=== PATIENT | female | born 1985 | race Caucasian/White ===

== ENCOUNTER 2017-07-26 23:58 | Emergency (ER) | payer SELFPAY ==
[2017-07-27] MEDS ORDERED: LIDOCAINE 1% W/EPI 1:100,000 MDV 50 ML VIAL ONE (01:12)
[2017-07-27] MEDS ORDERED: LIDOCAINE 1% 20 ML MDV ONE (01:12)
[2017-07-27] MEDS ORDERED: TETANUS & DIPHTHERIA TOX,ADULT 0.5 ML VIAL ONE (01:13)
--- NOTE | 2017-07-27 01:46 | EDPHYS ---
Physician Documentation [facility] Name: Alexandra Serrato Age: 31 yrs Sex: Female : 1985 Arrival Date: 07/27/2017 Time: 00:01 Bed 5 Private MD: ED Physician Philip Rojas HPI: 07/27 00:58 This 31 yrs old Female presents to ER via Ambulatory with complaints of snw Laceration To Lip. 00:58 The patient has a laceration related to: playing, hook from purse, occurred at home, snw and there are no complicating factors. The laceration(s) is(are) located on the upper marixa border. Onset: The symptoms/episode began/occurred suddenly, and became persistent. Associated signs and symptoms: The patient has no apparent associated signs or symptoms. The patient has not experienced similar symptoms in the past. The patient has not recently seen a physician. 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 - Social history:: Smoking status: Patient/guardian denies using tobacco. ROS: 00:58 Constitutional: Negative for fever, chills, and weight loss, Eyes: Negative for injury, snw pain, redness, and discharge, Neck: Negative for injury, pain, and swelling, Cardiovascular: Negative for chest pain, palpitations, and edema, Respiratory: Negative for shortness of breath, cough, wheezing, and pleuritic chest pain, Abdomen/GI: Negative for abdominal pain, nausea, vomiting, diarrhea, and constipation, Back: Negative for injury and pain, : Negative for injury, bleeding, discharge, and swelling, MS/Extremity: Negative for injury and deformity, Skin: Negative for injury, rash, and discoloration, Neuro: Negative for headache, weakness, numbness, tingling, and seizure. 00:58 ENT: Positive for injury or acute deformity, laceration, of the upper lip. Exam: 00:56 Constitutional: This is a well developed, well nourished patient who is awake, alert, snw and in no acute distress. Eyes: Pupils equal round and reactive to light, extra-ocular motions intact. Lids and lashes normal. Conjunctiva and sclera are non-icteric and not injected. Cornea within normal limits. Periorbital areas with no swelling, redness, or edema. ENT: Nares patent. No nasal discharge, no septal abnormalities noted. Tympanic membranes are normal and external auditory canals are clear. Oropharynx with no redness, swelling, or masses, exudates, or evidence of obstruction, uvula midline. Mucous membranes moist. Neck: Trachea midline, no thyromegaly or masses palpated, and no cervical lymphadenopathy. Supple, full range of motion without nuchal rigidity, or vertebral point tenderness. No Meningismus. Chest/axilla: Normal chest wall appearance and motion. Nontender with no deformity. No lesions are appreciated. Cardiovascular: Regular rate and rhythm with a normal S1 and S2. No gallops, murmurs, or rubs. Normal PMI, no JVD. No pulse deficits. Respiratory: Lungs have equal breath sounds bilaterally, clear to auscultation and percussion. No rales, rhonchi or wheezes noted. No increased work of breathing, no retractions or nasal flaring. Abdomen/GI: Soft, non-tender, with normal bowel sounds. No distension or tympany. No guarding or rebound. No evidence of tenderness throughout. Back: No spinal tenderness. No costovertebral tenderness. Full range of motion. Skin: Warm, dry with normal turgor. Normal color with no rashes, no lesions, and no evidence of cellulitis. MS/ Extremity: Pulses equal, no cyanosis. Neurovascular intact. Full, normal range of motion. Neuro: Awake and alert, GCS 15, oriented to person, place, time, and situation. Cranial nerves II-XII grossly intact. Motor strength 5/5 in all extremities. Sensory grossly intact. Cerebellar exam normal. Normal gait. Psych: Awake, alert, with orientation to person, place and time. Behavior, mood, and affect are within normal limits. 00:56 Head/face: Noted is a laceration(s), that is deep, 1.5 cm(s), of the upper lip, swelling, that is moderate. Vital Signs: 00:11 BP 121 / 81; Pulse 105; Resp 18; Temp 98; Pulse Ox 95% on R/A; Weight 113.4 kg; Height bp 5 ft. 6 in. (167.64 cm); 01:15 BP 135 / 58; Pulse 94; Resp 16; Pulse Ox 98% ; bp 00:11 Body Mass Index 40.35 (113.40 kg, 167.64 cm) bp Laceration: 01:48 Wound Repair of 1.2cm ( 0.5in ) subcutaneous laceration to upper lip. Irregularly snw shaped.. Hemostasis noted.. Distal neuro/vascular/tendon intact. Anesthesia: Local anesthetic administered with 5 mls of 1% lidocaine. Wound prep: Moderate cleansing with hibiclenz. Skin closed with 5 6-0 Prolene using simple sutures and sterile technique. Skin closed with 1 6-0 chromic using simple sutures and sterile technique. Dressed with none. Patient tolerated well. MDM: 00:30 Patient medically screened. bernadette 01:47 Data reviewed: vital signs, nurses notes. Data interpreted: Pulse oximetry: on room air snw is 98 %. Interpretation: normal. Counseling: I had a detailed discussion with the patient and/or guardian regarding: the historical points, exam findings, and any diagnostic results supporting the discharge/admit diagnosis, the presence of at least one elevated blood pressure reading (>120/80) during this emergency department visit, the need for outpatient follow up, to return to the emergency department if symptoms worsen or persist or if there are any questions or concerns that arise at home. Special discussion: I have referred the patient to see his PCP for further evaluation of high blood pressure. I discussed in detail with the patient the higher chance of wound infection based on his presenting history. Based on the history and exam findings, there is no indication for further emergent testing or inpatient evaluation. I discussed with the patient/guardian the need to see the primary care provider for further evaluation of the symptoms. 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 Exp: bp 11/02/2019. Lot #: [id number]. } Route: IM; Site: right deltoid; 01:18 Follow up: Response: No adverse reaction bp 02:05 Drug: Lidocaine (1 %) 1 vials {Note: GIVEN BY PROVIDER.} Volume: 20 ml; Route: bp Infiltration; 02:10 Drug: KeFLEX 500 mg Route: PO; bp 02:12 Follow up: Response: Medication administered at discharge. bp Disposition: 14:30 Co-signature as Attending Physician, Philip Rojas MD I agree with the assessment and [facility] plan of care. Disposition: 07/27/17 01:46 Discharged to Home. Impression: Laceration without foreign body of lip. - Condition is Stable. - Discharge Instructions: Laceration Care, Adult, Facial Laceration, Suture Removal, Care After, Sutured Wound Care, VIS, Tetanus, Diphtheria (Td) - CDC. - Prescriptions for Keflex 500 mg Oral Capsule - take 1 capsule by ORAL route every 8 hours for 10 days; 30 capsule. Diclofenac Sodium 75 mg Oral Tablet Sustained Release - take 1 tablet by ORAL route 2 times per day; 30 tablet. - School release form, Medication Reconciliation Form, Thank You Letter, Antibiotic Education, Prescription Opioid Use form. - Follow up: Private Physician; When: 5 - 6 days; Reason: Recheck today's complaints, Continuance of care, Re-evaluation by your physician. Follow up: Emergency Department; When: 5 - 6 days; Reason: Staple/Suture removal. Signatures: Philip Rojas MD MD cha Therrien, Shelly, METROLOGY ENGINEER-C METROLOGY ENGINEER-Yonatanw Mendoza Olivas, RN RN
--- NOTE | 2017-07-27 01:46 | ER ---
Nurse's Notes [facility] Name: Alexandra Serrato Age: 31 yrs Sex: Female : 1985 Arrival Date: 07/27/2017 Time: 00:01 Bed 5 Private MD: Diagnosis: Laceration without foreign body of lip Presentation: 07/27 00:09 Presenting complaint: Patient states: I WAS WRESTLING WITH MY AND FELL INTO A bp METAL THINK. Transition of care: patient was not received from another setting of care. Complicating Factors: There are no complicating factors for this patient. Onset of symptoms was July 26, 2017 at 23:00. Initial Sepsis Screen: Does the patient meet any 2 criteria? No. Patient's initial sepsis screen is negative. Does the patient have a suspected source of infection? No. Patient's initial sepsis screen is negative. Care prior to arrival: None. 00:09 Method Of Arrival: Ambulatory bp 00:09 Acuity: ANGELA 3 bp Triage Assessment: 00:11 General: Appears distressed, comfortable, obese, Behavior is cooperative, appropriate bp for age, anxious. Pain: Complains of pain in mouth. EENT: No deficits noted. Neuro: Level of Consciousness is awake, alert, obeys commands, Oriented to person, place, time, situation, Appropriate for age. Cardiovascular: No deficits noted. Respiratory: Airway is patent Respiratory effort is even, unlabored, Respiratory pattern is regular, symmetrical. GI: No signs and/or symptoms were reported involving the gastrointestinal system. : No signs and/or symptoms were reported regarding the genitourinary system. Derm: No deficits noted. Musculoskeletal: Circulation, motion, and sensation intact. Range of motion: intact in all extremities. Injury Description: Laceration sustained to upper marixa border is 0.5 to 2.5 cm long, not bleeding, was sustained 30-60 minutes ago. is bleeding no active bleeding noted. 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 - Social history:: Smoking status: Patient/guardian denies using tobacco. Screenin:15 Abuse screen: Denies threats or abuse. Denies injuries from another. Nutritional bp screening: No deficits noted. Tuberculosis screening: No symptoms or risk factors identified. 02:00 Fall Risk None identified. bp Assessment: 00:15 Reassessment: SEE TRIAGE. 31YO WF P/W R SUPERIOR LIP LAC CROSSING THE MARIXA BORDER bp WITH COMMUNICATION TO THE ORAL CAVITY. NO ACTIVE BLEEDING AT THIS TIME. 00:15 Injury Description: Laceration sustained to upper marixa border is 0.5 to 2.5 cm bp long, was sustained 30-60 minutes ago. is bleeding no active bleeding noted. 01:20 Reassessment: PROVIDER AT B/S FOR LAC REPAIR. bp 02:12 Reassessment: PT D/C HOME AMBULATORY, DX WITH LACERATION WITHOUT FOREIGN BODY OF LIP. bp Vital Signs: 00:11 BP 121 / 81; Pulse 105; Resp 18; Temp 98; Pulse Ox 95% on R/A; Weight 113.4 kg; Height bp 5 ft. 6 in. (167.64 cm); 01:15 BP 135 / 58; Pulse 94; Resp 16; Pulse Ox 98% ; bp 00:11 Body Mass Index 40.35 (113.40 kg, 167.64 cm) bp ED Course: 00:01 Patient arrived in ED. do 00:02 Mendoza Olivas, RN is Primary Nurse. bp 00:10 Triage completed. bp 00:11 Arm band placed on left wrist. bp 00:15 Patient has correct armband on for positive identification. Bed in low position. Call bp light in reach. Side rails up X2. 00:27 Gin[facility] Pearl [facility]C [facility] snw 00:27 Philip Rojas MD is Attending Physician. snw 02:13 Assist provider with laceration repair on mouth that was using sutures. Set up tray. bp Performed by Ginette CEDEÑO Dressed with Neosporin, Patient tolerated well. Patient did not have IV access during this emergency room visit. 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 Exp: bp 11/02/2019. Lot #: [id number]. } Route: IM; Site: right deltoid; 01:18 Follow up: Response: No adverse reaction bp 02:05 Drug: Lidocaine (1 %) 1 vials {Note: GIVEN BY PROVIDER.} Volume: 20 ml; Route: bp Infiltration; 02:10 Drug: KeFLEX 500 mg Route: PO; bp 02:12 Follow up: Response: Medication administered at discharge. bp Outcome: 01:46 Discharge ordered by . snw 02:15 Discharged to home ambulatory. bp 02:15 Condition: stable 02:15 Discharge instructions given to patient, Instructed on discharge instructions, follow up and referral plans. medication usage, Demonstrated understanding of instructions, follow-up care, medications, wound care, Prescriptions given X 2. 02:17 Patient left the ED. bp Signatures: Ginette Pearl, WELL LOGGING OPERATOR MUD ANALYSIS-C WELL LOGGING OPERATOR MUD ANALYSIS-Csnw Carrie Tang Brian, RN RN bp
[2017-07-27] MEDS ORDERED: CEPHALEXIN 250 MG CAP ONE (02:07)
== END 2017-07-27 02:17 | disposition home or self-care (01) ==
LOC: ER 23:58
PROC: 0CQ0XZZ Repair Upper Lip, External Approach (ICD-10-PCS; principal; 2017-07-27)
DX: S01.511A Laceration without foreign body of lip, initial encounter (principal); W26.8XXA Contact with other sharp object(s), not elsewhere classified, initial encounter; Y93.9 Activity, unspecified; Y92.9 Unspecified place or not applicable; Z88.8 Allergy status to other drugs, medicaments and biological substances
CPT/HCPCS: 90714; 99283

== ENCOUNTER 2018-06-27 17:25 | Emergency (ER) | payer SELFPAY ==
[2018-06-27] MEDS ORDERED: KETOROLAC 30 MG/ML INJ ONE (18:29)
--- NOTE | 2018-06-27 19:15 | ER ---
Nurse's Notes [facility] [place] Name: Alexandra Serrato Age: 32 yrs Sex: Female : 1985 Arrival Date: 06/27/2018 Time: 17:27 Bed 26 Private MD: Diagnosis: Low back pain Presentation: 06/27 17:46 Presenting complaint: Low back pain 6/10 after lifting wooden bed 1 week ago. hb Transition of care: patient was not received from another setting of care. Onset of symptoms was June 20, 2018. Risk Assessment: Do you want to hurt yourself or someone else? Patient reports no desire to harm self or others. Care prior to arrival: None. 17:46 Method Of Arrival: Ambulatory hb 17:46 Acuity: ANEGLA 4 hb 18:10 Initial Sepsis Screen: Does the patient meet any 2 criteria? No. Patient's initial rv sepsis screen is negative. Does the patient have a suspected source of infection? No. Patient's initial sepsis screen is negative. 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 - Social history:: Smoking status: Patient/guardian denies using tobacco. - Ebola Screening: : No symptoms or risks identified at this time. Screenin:10 Abuse screen: Denies threats or abuse. Denies injuries from another. Nutritional rv screening: No deficits noted. Tuberculosis screening: No symptoms or risk factors identified. Fall Risk None identified. Assessment: 18:09 General: Appears in no apparent distress. uncomfortable, Behavior is calm, cooperative. rv Pain: Complains of pain in back. Neuro: Level of Consciousness is awake, alert, obeys commands, Oriented to person, place, time, situation. Cardiovascular: Capillary refill < 3 seconds. Respiratory: Airway is patent. GI: No signs and/or symptoms were reported involving the gastrointestinal system. : No signs and/or symptoms were reported regarding the genitourinary system. EENT: No signs and/or symptoms were reported regarding the EENT system. Derm: Skin is intact. Musculoskeletal: No signs and/or symptoms reported regarding the musculoskeletal system. 19:00 Reassessment: Patient appears in no apparent distress at this time. Patient and/or ca1 family updated on plan of care and expected duration. Pain level reassessed. Patient is alert, oriented x 3, equal unlabored respirations, skin warm/dry/pink. Vital Signs: 17:45 BP 141 / 88; Pulse 98; Resp 16; Temp 97.5; Pulse Ox 98% on R/A; Pain 6/10; hb 19:00 BP 135 / 82; Pulse 95; Resp 19; Pulse Ox 100% on R/A; ca1 ED Course: 17:27 Patient arrived in ED. rg4 17:46 Triage completed. hb 17:46 Arm band placed on. hb 17:55 Heidy Adam [facility]-C [facility] kb 17:55 Ze Conteh MD is Attending Physician. kb 18:10 Patient has correct armband on for positive identification. Bed in low position. Call rv light in reach. Side rails up X 1. Pulse ox on. NIBP on. 18:16 Maura Cox, ROMERO is Primary Nurse. ca1 19:22 No provider procedures requiring assistance completed. Patient did not have IV access ca1 during this emergency room visit. Administered Medications: 18:20 Drug: TORadol 60 mg Route: IM; Site: left gluteus; ca1 19:21 Follow up: Response: No adverse reaction ca1 Outcome: 19:14 Discharge ordered by MD. kb 19:22 Discharged to home ambulatory. ca1 19:22 Condition: stable 19:22 Discharge instructions given to patient, Instructed on discharge instructions, follow up and referral plans. medication usage, Demonstrated understanding of instructions, follow-up care, medications, Prescriptions given X 2. 19:23 Patient left the ED. ca1 Signatures: Heidy Adam FNP-C FNP-Ckb Baxter, Heather RN Akilah Guzmán rg4 Iraj Lopez RN RN Maura Cox RN RN ca1
--- NOTE | 2018-06-27 19:15 | EDPHYS ---
Physician Documentation [facility] Name: Alexandra Serrato Age: 32 yrs Sex: Female : 1985 Arrival Date: 06/27/2018 Time: 17:27 Bed 26 Private MD: ED Physician Ze Conteh HPI: 06/27 19:12 This 32 yrs old Female presents to ER via Ambulatory with complaints of Back kb Pain. 19:12 The patient presents with pain that is acute. The symptoms are located in the low back. kb Onset: The symptoms/episode began/occurred 1 week(s) ago. The pain does not radiate. Associated signs and symptoms: The patient has no apparent associated signs or symptoms. The problem was sustained when lifting heavy object. Modifying factors: The patient symptoms are alleviated by nothing, the patient symptoms are aggravated by any movement. Severity of symptoms: At their worst the symptoms were moderate, in the emergency department the symptoms are unchanged. The patient has not experienced similar symptoms in the past. The patient has not recently seen a physician. 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 - Social history:: Smoking status: Patient/guardian denies using tobacco. - Ebola Screening: : No symptoms or risks identified at this time. ROS: 19:10 Constitutional: Negative for fever, chills, and weight loss, Neck: Negative for injury, kb pain, and swelling, Cardiovascular: Negative for chest pain, palpitations, and edema, Respiratory: Negative for shortness of breath, cough, wheezing, and pleuritic chest pain, Abdomen/GI: Negative for abdominal pain, nausea, vomiting, diarrhea, and constipation, MS/Extremity: Negative for injury and deformity, Skin: Negative for injury, rash, and discoloration, Neuro: Negative for headache, weakness, numbness, tingling, and seizure. 19:10 Back: Positive for pain at rest, pain with movement, of the lumbar area and right low back, Negative for injury or acute deformity, decreased range of motion. Exam: 19:10 Constitutional: This is a well developed, well nourished patient who is awake, alert, kb and in no acute distress. Head/Face: Normocephalic, atraumatic. Neck: Trachea midline, no thyromegaly or masses palpated, and no cervical lymphadenopathy. Supple, full range of motion without nuchal rigidity, or vertebral point tenderness. No Meningismus. Chest/axilla: Normal chest wall appearance and motion. Nontender with no deformity. No lesions are appreciated. Cardiovascular: Regular rate and rhythm with a normal S1 and S2. No gallops, murmurs, or rubs. Normal PMI, no JVD. No pulse deficits. Respiratory: Lungs have equal breath sounds bilaterally, clear to auscultation and percussion. No rales, rhonchi or wheezes noted. No increased work of breathing, no retractions or nasal flaring. Abdomen/GI: Soft, non-tender, with normal bowel sounds. No distension or tympany. No guarding or rebound. No evidence of tenderness throughout. Skin: Warm, dry with normal turgor. Normal color with no rashes, no lesions, and no evidence of cellulitis. MS/ Extremity: Pulses equal, no cyanosis. Neurovascular intact. Full, normal range of motion. Neuro: Awake and alert, GCS 15, oriented to person, place, time, and situation. Cranial nerves II-XII grossly intact. Motor strength 5/5 in all extremities. Sensory grossly intact. Cerebellar exam normal. Normal gait. 19:10 Back: pain, that is moderate, of the lumbar area and right low back, ROM is painful, with all movement. Vital Signs: 17:45 BP 141 / 88; Pulse 98; Resp 16; Temp 97.5; Pulse Ox 98% on R/A; Pain 6/10; hb 19:00 BP 135 / 82; Pulse 95; Resp 19; Pulse Ox 100% on R/A; ca1 MDM: 17:56 Patient medically screened. kb 19:08 Data reviewed: vital signs, nurses notes. Data interpreted: Pulse oximetry: on room air kb is 98 %. Interpretation: normal. Counseling: I had a detailed discussion with the patient and/or guardian regarding: the historical points, exam findings, and any diagnostic results supporting the discharge/admit diagnosis, the need for outpatient follow up, a family practitioner, to return to the emergency department if symptoms worsen or persist or if there are any questions or concerns that arise at home. Administered Medications: 18:20 Drug: TORadol 60 mg Route: IM; Site: left gluteus; ca1 19:21 Follow up: Response: No adverse reaction ca1 Disposition: 06/28 07:20 Co-signature as Attending Physician, Ze Conteh MD I agree with the assessment and kdr plan of care. Disposition: 06/27/18 19:14 Discharged to Home. Impression: Low back pain. - Condition is Stable. - Discharge Instructions: Back Injury Prevention, [id number], Back Pain, Adult, [id number], Back Exercises, [id number]. - Prescriptions for Cyclobenzaprine 10 mg Oral Tablet - take 1 tablet by ORAL route every 8 hours As needed; 21 tablet. Diclofenac Sodium 75 mg Oral Tablet, Delayed Release (E.C.) - take 1 tablet by ORAL route 2 times per day As needed; 30 tablet. - Medication Reconciliation Form, Thank You Letter, Antibiotic Education, Prescription Opioid Use, Work release form form. - Follow up: Emergency Department; When: As needed; Reason: Worsening of condition. Follow up: Private Physician; When: 2 - 3 days; Reason: Recheck today's complaints, Continuance of care, Re-evaluation by your physician. Signatures: Heidy Adam, ACADEMIC ADVISER-C ACADEMIC ADVISER-Ze Ewing MD MD [facility] Ijeoma Loving RN RN Maura Cox RN RN ca1 Corrections: (The following items were deleted from the chart) 06/27 19:23 19:14 06/27/2018 19:14 Discharged to Home. Impression: Low back pain. Condition is ca1 Stable. Forms are Medication Reconciliation Form, Thank You Letter, Antibiotic Education, Prescription Opioid Use. Follow up: Emergency Department; When: As needed; Reason: Worsening of condition. Follow up: Private Physician; When: 2 - 3 days; Reason: Recheck today's complaints, Continuance of care, Re-evaluation by your physician. kb
== END 2018-06-27 19:23 | disposition home or self-care (01) ==
LOC: ER 17:25
DX: M54.5 Low back pain (principal); Z88.8 Allergy status to other drugs, medicaments and biological substances
CPT/HCPCS: 96372; 99283

== ENCOUNTER 2018-07-17 17:17 | Emergency (ER) | payer SELFPAY ==
--- NOTE | 2018-07-17 17:56 | RAD REPORT ---
EXAM DESCRIPTION: Kris Fink (2 Views)07/17/2018 5:51 pm CLINICAL HISTORY: Cough COMPARISON: 2015 FINDINGS: The lungs appear clear of acute infiltrate. The heart is normal size IMPRESSION: No acute abnormalities displayed
[2018-07-17] MEDS ORDERED: IBUPROFEN 400 MG TAB ONE (18:34)
[2018-07-17] MEDS ORDERED: IBUPROFEN 200 MG TAB PO ONE (18:35)
--- NOTE | 2018-07-17 18:48 | ER ---
Nurse's Notes [facility] Name: Alexandra Serrato Age: 32 yrs Sex: Female : 1985 Arrival Date: 07/17/2018 Time: 17:19 Bed 18 Private MD: None, None Diagnosis: Influenza due to other identified influenza virus;Cough Presentation: 07/17 17:21 Presenting complaint: Patient states: sleepy, cough, congestion, sore throat, headache, sv chest tightness, fever Tmax 102.8 x 2 days. Transition of care: patient was not received from another setting of care. Onset of symptoms was July 15, 2018. Care prior to arrival: None. 17:21 Method Of Arrival: Ambulatory sv 17:21 Acuity: ANGELA 3 sv 19:16 Risk Assessment: Do you want to hurt yourself or someone else? Patient reports no ph desire to harm self or others. Initial Sepsis Screen: Does the patient meet any 2 criteria? No. Patient's initial sepsis screen is negative. Does the patient have a suspected source of infection? No. Patient's initial sepsis screen is negative. 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 - Social history:: Smoking status: unknown. - Ebola Screening: : Patient negative for fever greater than or equal to 101.5 degrees Fahrenheit, and additional compatible Ebola Virus Disease symptoms. Screenin:43 Abuse screen: Denies threats or abuse. Denies injuries from another. Nutritional aj1 screening: No deficits noted. Tuberculosis screening: No symptoms or risk factors identified. 19:17 Fall Risk Ambulatory Aid- None/Bed Rest/Nurse Assist (0 pts). Gait- Normal/Bed ph Rest/Wheelchair (0 pts) Mental Status- Oriented to own ability (0 pts). Total Meade Fall Scale indicates No Risk (0-24 pts). Assessment: 18:43 General: Appears in no apparent distress. uncomfortable, Behavior is calm, cooperative, aj1 appropriate for age. Pain: Complains of pain in left aspect of posterior pharynx and right aspect of posterior pharynx. Neuro: Level of Consciousness is awake, alert, obeys commands, Oriented to person, place, time, situation. Cardiovascular: Heart tones S1 S2 present Patient's skin is warm and dry. Respiratory: Airway is patent Respiratory effort is even, unlabored, Respiratory pattern is regular, symmetrical. Respiratory: Reports shortness of breath cough that is persistent Breath sounds are clear bilaterally. GI: Reports diarrhea. : No signs and/or symptoms were reported regarding the genitourinary system. EENT: Parent/caregiver reports the patient having sore throat. Derm: No signs and/or symptoms reported regarding the dermatologic system. Skin is pink, warm \T\ dry. normal. Musculoskeletal: No signs and/or symptoms reported regarding the musculoskeletal system. Circulation, motion, and sensation intact. 19:16 Reassessment: Patient appears in no apparent distress at this time. Patient and/or ph family updated on plan of care and expected duration. Pain level reassessed. Patient is alert, oriented x 3, equal unlabored respirations, skin warm/dry/pink. Vital Signs: 17:22 BP 150 / 113; Pulse 124; Resp 20; Temp 98.4; Pulse Ox 95% ; Weight 115.21 kg; Height 5 sv ft. 7 in. (170.18 cm); 18:42 BP 135 / 81; Pulse 108; Resp 20; Pulse Ox 96% on R/A; aj1 17:22 Body Mass Index 39.78 (115.21 kg, 170.18 cm) sv ED Course: 17:19 Patient arrived in ED. mr 17:19 None, None is Private Physician. mr 17:22 Triage completed. sv 17:22 Arm band placed on. sv 17:26 Omari Ledesma PA is PHCP. jr8 17:26 Isaias Rosales MD is Attending Physician. jr8 17:38 Bonnie Nguyen, ROMERO is Primary Nurse. aj1 17:49 X-ray completed. Patient tolerated procedure well. Patient moved back from radiology. bb2 17:50 Chest Pa And Lat (2 Views) XRAY In Process Unspecified. EDMS 18:18 Urine collected: clean catch specimen, cloudy. mh5 18:25 Strep Sent. mh5 18:25 Influenza Screen (a \T\ B) Sent. mh5 18:33 Strep Sent. mh5 18:33 Influenza Screen (a \T\ B) Sent. mh5 18:34 Patient has correct armband on for positive identification. Bed in low position. Call [facility] light in reach. Adult w/ patient. sheet. Pulse ox on. NIBP on. 18:43 No provider procedures requiring assistance completed. aj1 19:18 Patient did not have IV access during this emergency room visit. ph Administered Medications: 18:37 Drug: Motrin 600 mg Route: PO; [facility] 19:19 Follow up: Response: No adverse reaction ph Outcome: 18:47 Discharge ordered by . brittani 19:18 Discharged to home ambulatory, with family. ph 19:18 Condition: stable 19:18 Discharge instructions given to patient, family, Instructed on discharge instructions, follow up and referral plans. medication usage, Demonstrated understanding of instructions, follow-up care, medications, Prescriptions given X 2. 19:19 Patient left the ED. [email or web address] Signatures: Dispatcher [employer] EDMS Bonnie Nguyen RN RN Lexus Lazar RN RN renae Duval Randi Baltazar, Omari, PA PA Brandee Jovel RN RN Blake Pending sale to [facility] Health[facility]islav Mcgovern RN RN malad3 Sola Davey2 Corrections: (The following items were deleted from the chart) 17:23 17:21 Presenting complaint: Patient states: sleepy, cough, congestion, sore throat, sv chest tightness, fever Tmax 102.8 x 2 days sv
--- NOTE | 2018-07-17 18:48 | EDPHYS ---
Physician Documentation [facility] Name: Alexandra Serrato Age: 32 yrs Sex: Female : 1985 Arrival Date: 07/17/2018 Time: 17:19 Bed 18 Private MD: None, None ED Physician Isaias Rosales HPI: 07/17 17:38 This 32 yrs old Female presents to ER via Ambulatory with complaints of Flu jr8 Symptoms. 17:38 Onset: The symptoms/episode began/occurred gradually, 3 day(s) ago, and became worse jr8 today. Associated signs and symptoms: Pertinent positives: congestion, cough, diarrhea, fever, shortness of breath, sore throat, wheezing, Pertinent negatives: earache, headache. The patient has not experienced similar symptoms in the past. The patient has not recently seen a physician. Patient reports fever, chills, productive cough, congestion, body aches, and sore throat since Sunday. Patient's daughter was diagnosed with the flu last week in this ER. 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 - Social history:: Smoking status: unknown. - Ebola Screening: : Patient negative for fever greater than or equal to 101.5 degrees Fahrenheit, and additional compatible Ebola Virus Disease symptoms. ROS: 17:38 Cardiovascular: Negative for chest pain, palpitations, and edema. jr8 17:38 Skin: Negative for injury, rash, and discoloration, Neuro: Negative for headache, weakness, numbness, tingling, and seizure. 17:38 Constitutional: Positive for body aches, chills, fatigue, fever. 17:38 ENT: Positive for sinus congestion, sore throat. 17:38 Neck: Negative for rash, stiffness. 17:38 Respiratory: Positive for cough, with green sputum, shortness of breath, wheezing. 17:38 Abdomen/GI: Positive for diarrhea. Exam: 17:42 Constitutional: This is a well developed, well nourished patient who is awake, alert, jr8 and in no acute distress. ENT: Nares patent. No nasal discharge, no septal abnormalities noted. Tympanic membranes are normal and external auditory canals are clear. Oropharynx with no redness, swelling, or masses, exudates, or evidence of obstruction, uvula midline. Mucous membranes moist. Cardiovascular: Regular rate and rhythm with a normal S1 and S2. No gallops, murmurs, or rubs. Normal PMI, no JVD. No pulse deficits. Respiratory: Lungs have equal breath sounds bilaterally, clear to auscultation and percussion. No rales, rhonchi or wheezes noted. No increased work of breathing, no retractions or nasal flaring. Abdomen/GI: Soft, non-tender, with normal bowel sounds. No distension or tympany. No guarding or rebound. No evidence of tenderness throughout. Skin: Warm, dry with normal turgor. Normal color with no rashes, no lesions, and no evidence of cellulitis. MS/ Extremity: Pulses equal, no cyanosis. Neurovascular intact. Full, normal range of motion. Neuro: Awake and alert, GCS 15, oriented to person, place, time, and situation. Cranial nerves II-XII grossly intact. Motor strength 5/5 in all extremities. Sensory grossly intact. Cerebellar exam normal. Normal gait. Vital Signs: 17:22 BP 150 / 113; Pulse 124; Resp 20; Temp 98.4; Pulse Ox 95% ; Weight 115.21 kg; Height 5 sv ft. 7 in. (170.18 cm); 18:42 BP 135 / 81; Pulse 108; Resp 20; Pulse Ox 96% on R/A; aj1 17:22 Body Mass Index 39.78 (115.21 kg, 170.18 cm) sv MDM: 17:26 Patient medically screened. jr8 18:44 Differential diagnosis: viral Infection, URI. Data reviewed: vital signs, nurses notes, jr8 lab test result(s), Flu: positive strep (-). 18:45 Counseling: I had a detailed discussion with the patient and/or guardian regarding: the 8 historical points, exam findings, and any diagnostic results supporting the discharge/admit diagnosis, lab results, radiology results, the need for outpatient follow up, a family practitioner, to return to the emergency department if symptoms worsen or persist or if there are any questions or concerns that arise at home. ED course: Spoke with patient about positive flu swab. Patient elected to receive Tamiflu Rx. Discussed medication with patient and home care. Patient appears more comfortable after receiving Motrin in ED. . 07/17 17:38 Order name: Influenza Screen (a \T\ B); Complete Time: 18:41 [facility] 07/17 17:38 Order name: Strep; Complete Time: 18:41 [facility] 07/17 17:38 Order name: Chest Pa And Lat (2 Views) XRAY; Complete Time: 18:11 [facility] 07/17 18:48 Order name: Throat Culture EDGA Administered Medications: 18:37 Drug: Motrin 600 mg Route: PO; aj1 19:19 Follow up: Response: No adverse reaction ph Disposition: 07/17/18 18:47 Discharged to Home. Impression: Influenza due to other identified influenza virus, Cough. - Condition is Stable. - Discharge Instructions: Influenza, Adult, Sbkt-[id number]-Siup, Cough, Adult. - Prescriptions for Tamiflu 75 mg Oral Capsule - take 1 tablet by ORAL route every 12 hours for 5 days; 10 tablet. Guaifenesin AC 10- 100 mg/5 mL Oral Liquid - take 10 milliliter by ORAL route every 4 hours As needed; 240 milliliter. - Medication Reconciliation Form, Thank You Letter, Antibiotic Education, Prescription Opioid Use, Work release form form. - Follow up: Private Physician; When: 2 - 3 days; Reason: If symptoms return, Recheck today's complaints, Re-evaluation by your physician. - Problem is new. - Symptoms have improved. Signatures: Dispatcher [employer] [facility] Bonnie Nguyen RN RN aj1 Lexus Kapoor RN RN sv Roszak, Josh, PA PA jr8 Brandee Torres ph D, RN RNavies, Jonathon, RN RN jd3 Corrections: (The following items were deleted from the chart) 18:48 18:40 URINE DIPSTICK--ANCILLARY+U.LAB.BRZ ordered. [facility] 18:48 18:40 URINE --ANCILLARY+UC.LAB.BRZ ordered. [facility] 19:19 18:47 07/17/2018 18:47 Discharged to Home. Impression: Influenza due to other jd3 identified influenza virus; Cough. Condition is Stable. Forms are Medication Reconciliation Form, Thank You Letter, Antibiotic Education, Prescription Opioid Use. Follow up: Private Physician; When: 2 - 3 days; Reason: If symptoms return, Recheck today's complaints, Re-evaluation by your physician. Problem is new. Symptoms have improved. jr8
== END 2018-07-17 19:19 | disposition home or self-care (01) ==
LOC: ER 17:17
DX: J10.1 Influenza due to other identified influenza virus with other respiratory manifestations (principal)
CPT/HCPCS: 71046; 87070; 87081; 87804; 99284

== ENCOUNTER 2023-09-22 12:45 | Emergency (ER) | payer OTHER, SELFPAY ==
--- NOTE | 2023-09-22 13:30 | ER ---
Nurse's Notes [facility] Name: Alexandra Vann Age: 38 yrs Sex: Female : 1985 Arrival Date: 09/22/2023 Time: 12:45 Bed 13 Private MD: Diagnosis: infection of surigcal incision site Presentation: 09/21 13:01 Chief complaint: Patient states: BILATERAL ARM SKIN REMOVAL SURGERY. RIGHT ARM WORRIED db IS INFECTED AND HAS A BAD SMELL. WENT TO [facility] AND WAS TOLD TO COME TO HOSPITAL. [facility] HAD SURGERY ON August AND SYMPTOMS STARTED LAST NIGHT. Coronavirus screen: Client denies travel out of the [place] in the last 14 days. At this time, the client does not indicate any symptoms associated with coronavirus-19. Ebola Screen: Patient negative for fever greater than or equal to 101.5 degrees Fahrenheit, and additional compatible Ebola Virus Disease symptoms Patient denies exposure to infectious person. Patient denies travel to an Ebola-affected area in the 21 days before illness onset. No symptoms or risks identified at this time. Initial Sepsis Screen: Does the patient meet any 2 criteria? No. Patient's initial sepsis screen is negative. Does the patient have a suspected source of infection? No. Patient's initial sepsis screen is negative. Risk Assessment: Do you want to hurt yourself or someone else? Patient reports no desire to harm self or others. Onset of symptoms was September 21, 2023. 13:01 Method Of Arrival: Ambulatory db 13:01 Acuity: ANGELA 3 db Triage Assessment: 13:03 General: Appears in no apparent distress. comfortable, Behavior is calm, cooperative. db Pain: Complains of pain in right arm. Neuro: Level of Consciousness is awake, alert, obeys commands, Oriented to person, place, time, situation. Derm: Reports WOUND TO RIGHT UPPER AND LEFT UPPER ARMS FROM RECENT SURGERY. SUTURES ARE INTACT. NOTED SOME REDNESS. PT NOTES SMELL TO RIGHT ARM. 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 - Infectious Disease History:: Denies. - Social history:: Smoking status: Patient denies any tobacco usage or history of. Screenin:37 [facility] ED Fall Risk Assessment (Adult) History of falling in the last 3 months, ld1 including since admission No falls in past 3 months (0 pts) Confusion or Disorientation No (0 pts) Intoxicated or Sedated No (0 pts) Impaired Gait No (0 pts) Mobility Assist Device Used No (0 pt) Altered Elimination No (0 pt) Score/Fall Risk Level 0 - 2 = Low Risk. Abuse screen: Denies threats or abuse. Denies injuries from another. Nutritional screening: No deficits noted. Tuberculosis screening: No symptoms or risk factors identified. Assessment: 13:37 General: Appears in no apparent distress. comfortable, Behavior is calm, cooperative, ld1 appropriate for age. Pain: Denies pain. Neuro: Level of Consciousness is awake, alert, obeys commands, Oriented to person, place, time, situation. Cardiovascular: Capillary refill < 3 seconds Patient's skin is warm and dry. Respiratory: Airway is patent Respiratory effort is even, unlabored. GI: Abdomen is flat, non-distended. : No signs and/or symptoms were reported regarding the genitourinary system. EENT: No signs and/or symptoms were reported regarding the EENT system. Derm: No signs and/or symptoms reported regarding the dermatologic system. Vital Signs: 13:01 BP 153 / 105; Pulse 95; Resp 18; Temp 98.4(O); Pulse Ox 100% ; Weight 81.65 kg; Height db 5 ft. 4 in. ; 13:01 Body Mass Index 30.90 (81.65 kg, 162.56 cm) db ED Course: 12:49 Patient arrived in ED. mg5 13:03 Triage completed. db 13:03 Arm band placed on Patient placed in an exam room. db 13:13 Mariah Arnold PA-C is PHCP. sb4 13:13 Ash Rodriguez MD is Attending Physician. sb4 13:20 Deborah Snyder RN is Primary Nurse. kc6 13:37 Patient has correct armband on for positive identification. Placed in gown. Bed in low ld1 position. Call light in reach. Side rails up X2. quality assurance monitor final on. Pulse ox on. NIBP on. Door closed. Warm blanket given. 13:37 No provider procedures requiring assistance completed. IV discontinued, intact, ld1 bleeding controlled, No redness/swelling at site. Administered Medications: No medications were administered Medication: 13:37 VIS not applicable for this client. ld1 Outcome: 13:29 Discharge ordered by . sb4 13:39 Discharged to home ambulatory, ld1 13:39 Condition: stable 13:39 Discharge instructions given to patient, Instructed on discharge instructions, follow up and referral plans. Demonstrated understanding of instructions, follow-up care, 13:39 Patient left the ED. ld1 Signatures: Risa Stoner RN RN ld1 Deborah Synder RN RN kc6 Carrie Silver RN RN db Mariah Arnold PAAgustín PAAgustín michaels4 Xi Grimaldo mg5 Corrections: (The following items were deleted from the chart) 13:04 13:03 Allergies: Phenergan; daniela db
--- NOTE | 2023-09-22 13:30 | EDPHYS ---
Physician Documentation [facility] Name: Alexandra Vann Age: 38 yrs Sex: Female : 1985 Arrival Date: 09/22/2023 Time: 12:45 Bed 13 Private MD: ED Physician Ash Rodriguez HPI: 09/21 17:12 This 38 yrs old Female presents to ER via Ambulatory with complaints of Wound Infection.sb4 17:13 Patient had surgery to remove excess skin on her bilateral arms 6 days ago. She still sb4 has sutures and belkys intact. States that she was originally taking some antibiotic but is not sure the name. States that last night she noticed it was redder and had a foul odor to it. She denies any discharge or disruption of the wound. Denies any known fevers. 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 - Infectious Disease History:: Denies. - Social history:: Smoking status: Patient denies any tobacco usage or history of. ROS: 17:13 Constitutional: Negative for fever, chills, and weight loss, sb4 17:13 Skin: Positive for Per HPI, Exam: 17:15 Constitutional: This is a well developed, well nourished patient who is awake, alert, sb4 and in no acute distress. Head/Face: Normocephalic, atraumatic. Eyes: Extra-ocular motions intact. Periorbital areas with no swelling, redness, or edema. ENT: Mucous membranes moist. 17:15 Skin: surgical incision intact, closed with sutures and belkys, extending from elbow to armpit down lateral chest wall. noted irregularly patterned erythema surrounding right sided incision. left side appears WNL. Vital Signs: 13:01 BP 153 / 105; Pulse 95; Resp 18; Temp 98.4(O); Pulse Ox 100% ; Weight 81.65 kg; Height db 5 ft. 4 in. ; 13:01 Body Mass Index 30.90 (81.65 kg, 162.56 cm) db MDM: 13:14 Patient medically screened. sb4 17:16 Data reviewed: vital signs, nurses notes, and as a result, I will discharge patient. sb4 Counseling: I had a detailed discussion with the patient and/or guardian regarding the historical points, exam findings, and any diagnostic results supporting the discharge/admit diagnosis, to return to the emergency department if symptoms worsen or persist or if there are any questions or concerns that arise at home. Administered Medications: No medications were administered Disposition: 18:02 Co-signature as Attending Physician, Ash Rodriguez MD I reviewed the patient's care rt provided by the Advanced Practice Provider and agree with the diagnosis and treatment plan. Disposition Summary: 09/22/23 13:29 Discharge Ordered Notes: Location: Home sb4 Problem: new sb4 Symptoms: are unchanged sb4 Condition: Stable sb4 Diagnosis - infection of surigcal incision site sb4 Followup: sb4 - With: Emergency Department - When: As needed - Reason: Trouble breathing, Worsening of condition Discharge Instructions: - Discharge Summary Sheet sb4 - Cellulitis, Adult, [id number] sb4 Forms: - Antibiotic Education sb4 - Patient Portal Instructions sb4 - Leadership Thank You Letter sb4 Prescriptions: - Clindamycin HCl 300 mg Oral Capsule - take 1 capsule ORAL route every 6 hours for 10 days; 40 capsule; Refills: 0, sb4 Product Selection Permitted - Fluconazole 150 mg Oral tablet - take 1 tablet ORAL route every 3 days; 2 tablet; Refills: 0, Product Selection sb4 Permitted Signatures: Carrie Silver, RN RN Mariah Zamarripa PA-C PA-C sb4 Ash Rodriguez MD MD rt Corrections: (The following items were deleted from the chart) 13:04 13:03 Allergies: Phenergan; daniela db
[2023-09-22 14:10] VITALS: BP 153/105; TEMP 98.4; O2SAT 100
== END 2023-09-22 13:39 | disposition home or self-care (01) ==
LOC: ER 12:45
DX: T81.41XA Infection following a procedure, superficial incisional surgical site, initial encounter (principal)
CPT/HCPCS: 99284